=== PATIENT | female | born 1950 | race Caucasian/White ===

== ENCOUNTER 2016-03-15 14:14 | Day surgery (SDC) | payer OTHER, MEDICARE ==
[~2016-03-15] VITALS: Ht 157.5 cm; Wt 91.0 kg
[~2016-03-15 14:14] MED LIST: ASPI-973 PO; ESOM20CA28 PO; LISI-567 PO; TRIA1CAP5 PO; fentaNYL-PF 50 mCg/mL 2 mL Inj IVPUSH PRN
[2016-03-15 14:46] VITALS: BP 135/86; PULSE 98; RESP 14; O2SAT 96
[2016-03-15 16:31] VITALS: BP 116/68; PULSE 86; RESP 14; O2SAT 96
[2016-03-15 16:41] VITALS: BP 95/66; PULSE 83; RESP 12; O2SAT 94
[2016-03-15 16:51] VITALS: BP 110/79; PULSE 90; RESP 14; O2SAT 98
--- NOTE | 2016-03-15 16:54 | ENDO ---
[address] [address] ENDOSCOPY PROCEDURE PATIENT: DEEPIKA FUENTES : 1950 MR#: [id number] ADMIT: 03/15/2016 JOB ID: [id number] DATE: 03/14/2016 PREPROCEDURE DIAGNOSIS: Family history of colon cancer. POSTPROCEDURE DIAGNOSIS: Family history of colon cancer. PROCEDURE PERFORMED: Colonoscopy. SURGEON: Mae Rodriguez MD. INSTRUMENT: [employer] PCF H 180 AL. MEDICATIONS: 1. Versed 8 mg. 2. Fentanyl 150 mcg. PREPARATION: Excellent. HISTORY OF PRESENT ILLNESS: This is a 65-year-old woman who last had a colonoscopy in 2008 to the ileocecal valve, which was normal. Her mother was diagnosed with colon cancer in her 70s and had hepatic metastases at that time, and from the disease. The patient's previous consumer lending manager recommended repeat colonoscopy, a shorter term interval than usual due to this family history. The patient herself was not having any changes in bowel movements leading up to the procedure. FINDINGS: Sigmoid diverticulosis: Otherwise normal. Colonoscopy with excellent prep to the cecum. DESCRIPTION OF PROCEDURE: The patient was brought to the procedure suite and placed in left lateral decubitus position. Moderate sedation was induced. A digital rectal examination was performed and was normal. The colonoscope was then advanced to the cecum, which was identified by the ileocecal valve and coalescence of the tenia. There were no strictures, masses, or polyps. The colonoscope was withdrawn over the course of 22 minutes. Scattered diverticula were seen in the sigmoid colon. The entire examination was otherwise normal. The endoscope was withdrawn. The patient tolerated the procedure well. COMPLICATIONS: None. ESTIMATED BLOOD LOSS: None. SPECIMENS: None.
== END 2016-03-15 23:59 | disposition home or self-care (01) ==
LOC: END 14:14
PROVIDERS: ATTEND Surgery
DX: Z12.11 Encounter for screening for malignant neoplasm of colon (principal); Z80.0 Family history of malignant neoplasm of digestive organs; K57.30 Diverticulosis of large intestine without perforation or abscess without bleeding; I10 Essential (primary) hypertension; Z79.82 Long term (current) use of aspirin
CPT/HCPCS: 99153; G0105; G0500; J2250; J7030